=== PATIENT | female | born 1950 | race Caucasian/White ===

== ENCOUNTER → 2021-10-13 | Outpatient (CLI) | payer OTHER ==
[~2021-10-13] MED LIST: ALPRAZOLAM0.5 MG PO; BORIC ACID PV; LEVOXYL75 MCG PO; SPIRIVA18 MCG INH; TRAMADOL HCL50 MG PO
== END ==
LOC: KOH-I 09:00
DX: R10.11 Right upper quadrant pain (principal); K74.60 Unspecified cirrhosis of liver; K82.8 Other specified diseases of gallbladder
CPT/HCPCS: 76705